=== PATIENT | male | born 1995 | race Caucasian/White ===

== ENCOUNTER 2019-12-19 18:46 | Emergency (ER) | payer OTHER ==
--- NOTE | 2019-12-19 19:44 | EDM.PDOC ---
ED HPI GENERAL MEDICAL PROBLEM - General Chief Complaint: Skin Complaint Stated Complaint: RIGHT FOOT INJURY Time Seen by Provider: 12/19/19 19:39 Source of Information: Reports: Patient History Limitations: Reports: No Limitations - History of Present Illness INITIAL COMMENTS - FREE TEXT/NARRATIVE: Pt with no pmh presents 1 hour after stepping on a nail at work. The nail went through the sole of his boot and into his foot. Pain mild and bleeding stopped without intervention. Last Tdap in 2017 Onset: Today R foot Pain Score (Numeric/FACES): 5 - Related Data Allergies Allergy/AdvReac Type Severity Reaction Status Date / Time Penicillins Allergy Rash Verified 12/19/19 19:22 Home Meds: Home Meds Cephalexin [Keflex] 500 mg PO QID 7 Days #28 capsule 12/19/19 [Rx] Levofloxacin 750 mg PO DAILY 7 Days #7 tablet 12/19/19 [Rx] Past Medical History - Infectious Disease History Infectious Disease History: Reports: Chicken Pox - History Comment History Comment: No reported pmh Social & Family History - Family History Family Medical History: Noncontributory - Tobacco Use Smoking Status *Q: Never Smoker - Caffeine Use Caffeine Use: Reports: None - Recreational Drug Use Recreational Drug Use: No ED ROS GENERAL - Review of Systems Review Of Systems: See Below Constitutional: Denies: Fever Respiratory: Denies: Shortness of Breath Cardiovascular: Denies: Chest Pain GI/Abdominal: Denies: Abdominal Pain Musculoskeletal: Reports: Foot Pain Skin: Reports: Wound ED EXAM, SKIN/RASH Exam: See Below General Appearance: Alert, No Apparent Distress Respiratory/Chest: No Respiratory Distress, Lungs Clear, Normal Breath Sounds Cardiovascular: Regular Rate, Rhythm, No Rub Extremities: Other (right plantar puncture wound, mild tenderness, no erythema or bleeding) Neurological: Alert, Oriented Course - Vital Signs Last Recorded V/S: Last Vital Signs Temp 97.1 F 12/19/19 19:23 Pulse 72 12/19/19 21:20 Resp 18 12/19/19 21:20 BP 140/88 12/19/19 21:20 Pulse Ox 99 12/19/19 21:20 - Orders/Labs/Meds Meds: Medications Discontinued Medications Generic Name Dose Route Start Last Admin Trade Name Freq PRN Reason Stop Dose Admin Cephalexin 500 mg 12/19/19 20:45 12/19/19 20:54 Keflex PO 12/19/19 20:46 500 mg ONETIME ONE Administration Levofloxacin 500 mg 12/19/19 20:45 12/19/19 20:54 Levaquin PO 12/19/19 20:46 500 mg ONETIME ONE Administration - Re-Assessments/Exams Free Text/Narrative Re-Assessment/Exam: 12/20/19 18:40 Pt presents with puncture wound through his boot. PE benign. Xray negative. Tdap UTD. Keflex and Levofloxacin given in the ED and prescribed. pt comfortable with discharge. Strict return precautions discussed should symptoms worsen or any concerns arise. Departure - Departure Time of Disposition: 21:37 Disposition: Home, Self-Care 01 Clinical Impression: Puncture wound of right foot - Discharge Information *PRESCRIPTION DRUG MONITORING PROGRAM REVIEWED*: Not Applicable *COPY OF PRESCRIPTION DRUG MONITORING REPORT IN PATIENT PROSPER: Not Applicable Prescriptions: Cephalexin [Keflex] 500 mg PO QID 7 Days #28 capsule Levofloxacin 750 mg PO DAILY 7 Days #7 tablet Instructions: Puncture Wound, [id number] Referrals: PCP,None [Primary Care Provider] - Forms: ED Department Discharge Sepsis Event Note - Evaluation Sepsis Screening Result: No Definite Risk - Focused Exam Date Exam was Performed: 12/20/19 Time Exam was Performed: 18:40
--- NOTE | 2019-12-19 20:18 | CR ---
Right foot: 3 views of the right foot were obtained. No radiopaque foreign object is seen. Joint spaces are preserved. No fracture, dislocation or other bony abnormality is appreciated. Impression: 1. No abnormality is appreciated on right foot exam. Diagnostic code #1 This report was dictated in [place] Standard Time
[2019-12-19] MEDS ORDERED: Cephalexin 500 MG Cap PO ONE (20:45)
[2019-12-19] MEDS ORDERED: Levofloxacin 500 MG Tab PO ONE (20:45)
== END 2019-12-19 21:37 | disposition home or self-care (01) ==
LOC: MW.ED 18:46
DX: S91.331A Puncture wound without foreign body, right foot, initial encounter (principal); Z88.0 Allergy status to penicillin; W45.0XXA Nail entering through skin, initial encounter; Y99.0 Civilian activity done for income or pay
CPT/HCPCS: 73630; 99283; A9270; 99282